=== PATIENT | male | born 1980 ===

== ENCOUNTER 2022-02-14 02:14 | Outpatient (CLI) | payer OTHER, SELFPAY ==
--- NOTE | 2022-02-14 | DI.RAD_ITS ---
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 TECHNIQUE: 2D digital imaging was performed. COMPARISON: CR XR LUMBAR SPINE AP, LAT from 02/14/2022 FINDINGS: Two views-AP and lateral. No evidence of fracture, listhesis, nor disc space narrowing. No scoliosis. No abnormal widening of the paraspinal lines. No osseous lesions. IMPRESSION: DATA REPOSITORY: RADIATION DOSE DELIVERED:
--- NOTE | 2022-02-14 | DI.RAD_ITS ---
Exam(s) XR LUMBAR SPINE AP, LAT EXAM: XR LUMBAR SPINE AP, LAT CLINICAL HISTORY: LUMBAR DISC DISEASE,M51.86. TECHNIQUE: 2D digital imaging was performed. COMPARISON: No exams were available for comparison FINDINGS: 3 views No evidence of fracture, listhesis, or pars defects. There is a transitional lumbosacral vertebra. Bone density normal. No osseous lesions. No disc space narrowing. Mild indentation of the inferior endplate of L5 noted. Facet joints appear unremarkable. No lytic osseous lesions. No blastic osseous lesions. Sacroiliac joints appear unremarkable. IMPRESSION: Minimal findings. Incidentally noted is a transitional lumbosacral vertebra. DATA REPOSITORY: RADIATION DOSE DELIVERED:
== END 2022-02-14 02:34 ==
PROVIDERS: Visit Provider Chiropractor
DX: M51.34 Other intervertebral disc degeneration, thoracic region (principal); M51.86 Other intervertebral disc disorders, lumbar region
CPT/HCPCS: 72072; 72100